=== PATIENT | male | born 1965 | race Caucasian/White ===

== ENCOUNTER 2017-12-17 12:15 | Outpatient (CLI) | payer OTHER ==
[~2017-12-17] VITALS: Ht 177.8 cm; Wt 116.6 kg
[2017-12-17 12:30] VITALS: BP 126/85
[2017-12-17] MEDS ORDERED: CARVEDILOL25 MG ORAL (16:44)
[2017-12-17] MEDS ORDERED: LEVOTHYROXINE75 MCG ORAL (16:44)
[2017-12-17] MEDS ORDERED: GABAPENTIN300 MG ORAL (16:44)
[2017-12-17] MEDS ORDERED: METOPROLOL SUCC25 MG ORAL (16:44)
[2017-12-17] MEDS ORDERED: TAMSULOSIN HCL0.4 MG ORAL (16:44)
[2017-12-17] MEDS ORDERED: OMEPRAZOLE20 M2 ORAL (16:44)
[2017-12-17] MEDS ORDERED: AMLODIPINE BESYL5 MG ORAL (16:44)
--- NOTE | 2017-12-22 10:34 | GI Initial Consult Note ---
History of Present Illness General Date patient seen: Dec 17, 2017 Time patient seen: 10:25 Referring physician: TAMIA Reason for Consultation: Screening Endoscopy Present Illness HPI 52 year old male patient referred by Dr. Causey for endoscopy screening for bariatric surgery. The patient presents today with no general GI symptoms; denies any abdominal pain, N/V/D or constipation. He is ambulatory with no apparent distress. He states that he had CABG performed approximately 7 weeks ago. States that the reason for this surgery is because he is unable to lose and maintain any weight loss through diet and exercise alone. Denies any unintentional weight loss or changes in dietary habits. Home Meds Reported Medications Omeprazole (OMEPRAZOLE) 20 Mg Capsule.dr, 20 MG ORAL DAILY, CAP 12/17/17 Metoprolol Succinate* (METOPROLOL SUCCINATE*) 25 Mg Tab.er.24h, 12.5 MG ORAL DAILY, TAB 12/17/17 Levothyroxine Sodium* (LEVOTHYROXINE SODIUM*) 75 Mcg Tablet, 150 MCG ORAL DAILY , TAB Take in the morning on an empty stomach, at least 30 minutes before food. 12/17/17 Gabapentin* (GABAPENTIN*) 300 Mg Capsule, 300 MG ORAL BEDTIME, CAP 12/17/17 Tamsulosin Hcl (TAMSULOSIN HCL*) 0.4 Mg Cap.er.24h, 0.4 MG ORAL BEDTIME, CAP 12/17/17 Carvedilol* (CARVEDILOL*) 25 Mg Tablet, 25 MG ORAL EVERY 12 HOURS, TAB 12/17/17 Amlodipine Besylate* (AMLODIPINE BESYLATE*) 5 Mg Tablet, 5 MG ORAL DAILY, TAB 12/17/17 Med list reviewed/reconciled: Yes Allergies: Coded Allergies: No Known Allergies (Unverified , 12/17/17) Patient History History Provided By: Patient, Medical Record PMH Narrative Morbid Obesity HTN HLD DM GERD CAD Hx of calculus of kidney GOUT OA Depression Asthma Past Surgical History: other - CABG October 2017 Pertinent Family History: none Social History: Reports: smoking - quit this year, drug use - quit 2 months ago ; Denies: alcohol use, other Review of Systems All Other Systems: negative except mentioned in HPI Physical Exam T 98.8 BP 126/85 P 62 96 RA HT 5'10 WT 257.4 Sp02 EP Interpretation: reviewed, normal General Appearance: well appearing, no apparent distress, alert Head: normocephalic EENT: PERRL/EOMI, normal ENT inspection Neck: supple Respiratory: normal breath sounds, no respiratory distress Cardiovascular: normal rate Gastrointestinal: normal inspection, non tender, soft, normal bowel sounds, non -distended Rectal: deferred Genitourinary: deferred Musculoskeletal: normal inspection, back normal Neurologic: normal inspection, alert, oriented x3, responsive Psychiatric: normal inspection, judgement/insight normal, memory normal Skin: normal inspection, normal color, no rash, warm/dry, palpation normal, well hydrated Lymphatic: normal inspection, no adenopathy GI: Plan Problems: (1) Encounter for diagnostic endoscopy (2) HLD (hyperlipidemia) (3) Depressed (4) HTN (hypertension) (5) Obesity (6) GERD (gastroesophageal reflux disease) (7) Diabetes mellitus (8) Hx of CABG Plan Given recent history of CABG in October 2017, the patient needs cardiac clearance or to wait a minimum of 6 months post procedure prior to having an endoscopy. we will contact the primary regarding this issue. Will proceed to schedule patient for EGD pending cardiac clearance and PA - NPO @ [place] day prior procedure explained acknowledged by patient. Discussed with Dr. Banks. Thank you for this patient referral, we will follow. The patient was seen and examined at bedside and all new and available data was reviewed in the patients chart. I agree with the above findings, impression and plan. (Patient seen earlier today. Signature stamp does not reflect patient encounter time.). - MD Kiersten Casas [place] [employer]ING [employer]INE OPERATOR Dec 22, 2017 10:34
== END 2017-12-17 12:45 | disposition home or self-care (01) ==
LOC: PAN 12:15
DX: Z13.89 Encounter for screening for other disorder (principal); E78.5 Hyperlipidemia, unspecified; I10 Essential (primary) hypertension; E66.9 Obesity, unspecified; K21.9 Gastro-esophageal reflux disease without esophagitis; E11.9 Type 2 diabetes mellitus without complications; I25.810 Atherosclerosis of coronary artery bypass graft(s) without angina pectoris; M10.9 Gout, unspecified; F32.9 Major depressive disorder, single episode, unspecified; J45.909 Unspecified asthma, uncomplicated
CPT/HCPCS: 99202